=== PATIENT | male | born 1985 | race Caucasian/White ===

== ENCOUNTER 2017-01-09 19:20 | Emergency (ER) | payer SELFPAY ==
[~2017-01-09 19:20] MED LIST: NOCURR
[2017-01-09] MEDS ORDERED: PERTUSS(ACELL),DIPH,TET VAC/PF 0.5 ML VIAL IM ONE (21:45)
[2017-01-09] MEDS ORDERED: CONTAINER EMPTY PERC SCH (21:45)
[2017-01-09] MEDS ORDERED: POVIDONE-IODINE 10% 15 ML SOLUTION UD TP ONE (21:45)
[2017-01-09] MEDS ORDERED: BUPIVACAINE HCL 0.25% PERC SCH (21:45)
[2017-01-09] MEDS ORDERED: OxyCODONE HCL/ACETAMINOPHEN 5-325 MG TABLET PO ONE (21:45)
[2017-01-09] MEDS ORDERED: BUPIVACAINE HCL/PF 0.25% 10 ML VIAL INJ ONE (22:00)
[2017-01-09 22:15] VITALS: BP 118/82
== END 2017-01-09 22:46 | disposition home or self-care (01) ==
LOC: EMS 19:21
DX: S51.851A Open bite of right forearm, initial encounter (principal); S51.831A Puncture wound without foreign body of right forearm, initial encounter; F17.210 Nicotine dependence, cigarettes, uncomplicated; Z98.890 Other specified postprocedural states; W54.0XXA Bitten by dog, initial encounter; Y93.89 Activity, other specified; Y92.89 Other specified places as the place of occurrence of the external cause; Y99.9 Unspecified external cause status
CPT/HCPCS: 12001; 90471; 90715; 99283; J3490

== ENCOUNTER 2017-05-11 07:57 | Emergency (ER) | payer MEDICAID ==
[2017-05-11] MEDS ORDERED: IPRATROPIUM BROMIDE 0.5 MG/2.5 ML NEB SOLUTION NEB ONE (09:00)
[2017-05-11] MEDS ORDERED: ACETAMINOPHEN 325 MG TABLET PO ONE (09:00)
[2017-05-11] MEDS ORDERED: GuaiFENesin/D-METHORPHAN [SUGAR-FREE] 200-20MG/10 ML SYRUP UDCUP PO ONE (09:00)
[2017-05-11] MEDS ORDERED: ALBUTEROL SULFATE 2.5 MG/0.5 ML NEB SOLUTION NEB ONE (09:00)
[2017-05-11 09:30] VITALS: BP 132/78
== END 2017-05-11 10:05 | disposition home or self-care (01) ==
LOC: EMS 07:59
DX: J40 Bronchitis, not specified as acute or chronic (principal); F17.210 Nicotine dependence, cigarettes, uncomplicated
CPT/HCPCS: 71020; 93005; 94640; 99284; J7613

== ENCOUNTER 2020-05-24 20:19 | Emergency (ER) | payer SELFPAY ==
[~2020-05-24] VITALS: Ht 188 cm; Wt 113.6 kg
[2020-05-24] MEDS ORDERED: LIDOCAINE 2%/EPI 1:200,000/PF 10 ML VIAL INJ ONE (22:45)
[2020-05-24] MEDS ORDERED: PERTUSS(ACELL),DIPH,TET VAC/PF 0.5 ML VIAL IM ONE (22:45)
[2020-05-24] MEDS ORDERED: SODIUM CHLORIDE 0.9% 250 ML IRRIG SOLUTION BOTTLE IRRIG ONE (22:45)
[2020-05-24] MEDS ORDERED: HYDROCODONE/ACETAMINOPHEN 5-325 MG TABLET PO ONE (22:45)
[2020-05-24] MEDS ORDERED: LIDOCAINE 1%/EPI 1:200,000/PF 30 ML VIAL INJ ONE (23:00)
[2020-05-25 00:50] VITALS: BP 124/78
== END 2020-05-25 01:14 | disposition home or self-care (01) ==
LOC: EMS 20:22
DX: S51.812A Laceration without foreign body of left forearm, initial encounter (principal); F17.210 Nicotine dependence, cigarettes, uncomplicated; V00.131A Fall from skateboard, initial encounter; Y93.51 Activity, roller skating (inline) and skateboarding; Y92.89 Other specified places as the place of occurrence of the external cause; Y99.8 Other external cause status
CPT/HCPCS: 12002; 90471; 90715; 99406

== ENCOUNTER 2021-08-06 01:22 | Emergency (ER) | payer OTHER ==
[~2021-08-06] VITALS: Ht 188 cm; Wt 100.0 kg
[2021-08-06 01:25] VITALS: BP 124/63
[2021-08-06] MEDS ORDERED: CEPH500C3 PO (02:12)
[2021-08-06] MEDS ORDERED: PERTUSS(ACELL),DIPH,TET VAC/PF 0.5 ML SYRINGE IM. ONE (02:15)
== END 2021-08-06 03:08 | disposition home or self-care (01) ==
LOC: EMS 01:23
DX: S81.802A Unspecified open wound, left lower leg, initial encounter (principal); F17.210 Nicotine dependence, cigarettes, uncomplicated; W26.0XXA Contact with knife, initial encounter; Y93.89 Activity, other specified; Y92.89 Other specified places as the place of occurrence of the external cause; Y99.8 Other external cause status
CPT/HCPCS: 90471; 90715; 99283

== ENCOUNTER 2023-12-15 00:09 | Emergency (ER) | payer OTHER ==
[~2023-12-15 00:09] MED LIST changes: +CEPH-558 PO; -NOCURR
[2023-12-15] MEDS ORDERED: SULF-261 PO (10:56)
[2023-12-15] MEDS ORDERED: CEPH-558 PO (10:56)
== END 2023-12-15 00:35 | disposition left against medical advice (07) ==
LOC: EMS 00:10
DX: Z53.21 Procedure and treatment not carried out due to patient leaving prior to being seen by health care provider (principal)

== ENCOUNTER 2023-12-15 07:37 | Emergency (ER) | payer OTHER ==
[~2023-12-15] VITALS: Ht 188 cm; Wt 81.8 kg
[2023-12-15 07:43] VITALS: BP 120/68; PULSE 106; RESP 18; TEMP 98.5
[2023-12-15] MEDS: LIDOCAINE 1% 10 ML VIAL SQ ONE (08:11)
[2023-12-15] MEDS: SULFAMETHOX/TRIMETH DS 800-160 MG/TABLET PO ONE (10:22)
[2023-12-15] MEDS: CEPHALEXIN MONOHYDRATE 500 MG CAPSULE PO ONE (10:22)
[2023-12-15] MEDS ORDERED: SULF-261 PO (10:56)
[2023-12-15] MEDS ORDERED: CEPH-558 PO (10:56)
== END 2023-12-15 11:26 | disposition home or self-care (01) ==
LOC: EMS 07:37
DX: L02.415 Cutaneous abscess of right lower limb (principal); F17.210 Nicotine dependence, cigarettes, uncomplicated; F15.10 Other stimulant abuse, uncomplicated
CPT/HCPCS: 99283; 10060; J3490

== ENCOUNTER 2024-02-05 01:24 | Emergency (ER) | payer OTHER ==
[~2024-02-05] VITALS: Ht 188 cm; Wt 98.0 kg
[~2024-02-05 01:24] MED LIST changes: +SULF-261 PO
[2024-02-05 02:50] VITALS: BP 141/78; PULSE 100; RESP 16; TEMP 98.3
[2024-02-05] MEDS ORDERED: CEPH-558 PO (03:05)
[2024-02-05] MEDS ORDERED: SULF-261 PO (03:05)
[2024-02-05] MEDS: CEPHALEXIN MONOHYDRATE 500 MG CAPSULE PO ONE (03:11)
[2024-02-05] MEDS: SULFAMETHOX/TRIMETH DS 800-160 MG/TABLET PO ONE (03:11)
== END 2024-02-05 03:36 | disposition home or self-care (01) ==
LOC: EMS 01:24
DX: L03.115 Cellulitis of right lower limb (principal); F17.210 Nicotine dependence, cigarettes, uncomplicated; F15.90 Other stimulant use, unspecified, uncomplicated
CPT/HCPCS: 99283

== ENCOUNTER 2024-09-16 21:17 | Emergency (ER) | payer OTHER ==
[~2024-09-16] VITALS: Ht 188 cm; Wt 86.4 kg
[2024-09-16 21:40] VITALS: BP 131/72; PULSE 83; RESP 16; TEMP 98.2; O2SAT 99
[2024-09-16] MEDS: HYDROCODONE/ACETAMINOPHEN 5-325 MG TABLET PO ONE (22:28)
[2024-09-16] MEDS: IBUPROFEN 600 MG TABLET PO ONE (22:28)
[2024-09-16] MEDS: CEPHALEXIN MONOHYDRATE 500 MG CAPSULE PO ONE (22:28)
[2024-09-16] MEDS ORDERED: PENI500T2 PO (22:33)
[2024-09-16] MEDS ORDERED: IBUP-1554 PO (22:33)
[2024-09-16] MEDS ORDERED: HYDR-4062 PO (22:33)
== END 2024-09-16 22:50 | disposition home or self-care (01) ==
LOC: EMS 21:17
DX: K02.9 Dental caries, unspecified (principal); F17.210 Nicotine dependence, cigarettes, uncomplicated
CPT/HCPCS: 99284; Z7502; Z7610